=== PATIENT | female | born 1955 | race Caucasian/White ===

== ENCOUNTER 2025-08-02 10:46 | Emergency (ER) | payer OTHER, SELFPAY ==
[2025-08-02 10:54] VITALS: BP 126/97; PULSE 1; RESP 18; TEMP 36.8; O2SAT 99; BMI 21.9
--- NOTE | 2025-08-02 10:58 | DI.RAD.S_ITS ---
PROCEDURE: XR RIBS LT MIN 3V W CXR1V INDICATIONS: fall TECHNIQUE: 2 views of the ribs were acquired, along with a single view chest. COMPARISON: None. FINDINGS: Surgical changes and devices: Surgical clips are seen overlying the left chest wall. Bones and chest wall: No fractures or dislocations. No suspicious bony lesions. Overlying soft tissues appear unremarkable. Lungs and pleura: No pleural effusions or pneumothorax. Lungs appear clear. Mediastinum: Mediastinal contours appear normal. Heart size is normal. IMPRESSION: No displaced rib fracture or pneumothorax. Dictated by: Neeta Das M.D. on 08/02/2025 at 10:51 Approved by: Neeta Das M.D. on 08/02/2025 at 10:54
--- NOTE | 2025-08-02 12:06 | ED.FALL ---
HPI - Fall General Chief Complaint: Fall Stated Complaint: 2days:fell LT ribs on tub. Sore, wants to r/o fx. Time Seen by Provider: 08/02/25 12:05 Source: patient Mode of arrival: Family Vehicle History of Present Illness HPI Narrative: Patient is a 70-year-old female without any significant past medical history comes into the ED from home for evaluation of left-sided rib pain, states that she fell in the bathtub proximally 2 days ago, states that it is more painful when she takes a deep breath but is not pleuritic in nature denies any actual true chest pain. She denies any blood thinners denies any other injuries at this time Related Data Previous Rx's ?Medication ?Instructions ?Recorded lidocaine 4 % topical patch 1 patch topical DAILY PRN pain 1 08/02/25 week #6 ea methocarbamol 500 mg tablet 500 mg PO BEDTIME PRN pain 1 week 08/02/25 #7 tabs naproxen 500 mg tablet (Naprosyn) 500 mg PO BID PRN pain 1 week #14 08/02/25 tabs Allergies Allergy/AdvReac Type Severity Reaction Status Date / Time No Known Drug Allergies Allergy Verified 08/02/25 10:55 Review of Systems Review of Systems Narrative: General: Cooperative, well-developed, not in acute distress HEENT: Normocephalic, atraumatic, PERRLA, normal sclera, eyelids normal Neck: Active full range of motion, atraumatic Chest: Normal to inspection, negative crepitus, no overlying erythema ecchymosis Respiratory: Normal respiratory effort, not in acute respiratory distress, clear to auscultation bilaterally negative cough, wheeze, tachypnea, rhonchi, rales Cardiology: Regular rate rhythm negative gallop, murmur, rubs GI/: No tenderness to palpation, soft, non rigid, normal to inspection, exam deferred MSK: Positive left-sided rib pain Full active range of motion in all 4 extremities, no tenderness to palpation of any bony prominences Skin: No rashes or lesions noted Neuro: Alert awake oriented x3, moves all 4 extremities spontaneously, cranial nerves intact, able to answer all questions appropriately follows commands appropriately Psych: Cooperative, negative suicidal or homicidal ideations Patient History Smoking Status: Never smoker Exam Narrative Exam Narrative: General: Cooperative, well-developed, not in acute distress HEENT: Normocephalic, atraumatic, PERRLA, normal sclera, eyelids normal Neck: Active full range of motion, atraumatic Chest: Normal to inspection, negative crepitus, no overlying erythema ecchymosis Respiratory: Normal respiratory effort, not in acute respiratory distress, clear to auscultation bilaterally negative cough, wheeze, tachypnea, rhonchi, rales Cardiology: Regular rate rhythm negative gallop, murmur, rubs GI/: No tenderness to palpation, soft, non rigid, normal to inspection, exam deferred MSK: Full active range of motion in all 4 extremities, atraumatic, no tenderness to palpation of any bony prominences Skin: No rashes or lesions noted Neuro: Alert awake oriented x3, moves all 4 extremities spontaneously, cranial nerves intact, able to answer all questions appropriately follows commands appropriately Psych: Cooperative, negative suicidal or homicidal ideations Initial Vital Signs Initial Vital Signs: Vital Signs Temperature 98.2 F 08/02/25 10:54 Pulse Rate 1 L 08/02/25 10:54 Respiratory Rate 18 08/02/25 10:54 Blood Pressure 126/97 H 08/02/25 10:54 Pulse Oximetry 99 08/02/25 10:54 Oxygen Delivery Method Room Air 08/02/25 10:54 Course Orders Ordered: ED Orders 08/02/25 10:58 XR ribs LT min 3V w CXR1V Stat Vital Signs Vital signs: Vital Signs - 8 hr 08/02/25 10:54 Temperature 98.2 F Pulse Rate 1 L Respiratory Rate 18 Blood Pressure 126/97 H Pulse Oximetry 99 Oxygen Delivery Method Room Air MDM - Fall MDM Narrative Medical decision making narrative: Patient is a 70-year-old female without any significant past medical history comes into the ED from home for evaluation of left-sided rib pain, states that she fell in the tub and proximally 2 days ago, states that she has been having persistent pain therefore wanted to make sure there was no fracture. Patient had rib x-ray performed here that did not show any acute traumatic injury, no pneumothorax no pneumonia. Patient does have some tenderness to palpation of the left anterior ribs but no palpable step-offs no ecchymosis, patient will be treated for rib contusion instructed to follow up with the primary care in outpatient setting she verbalized understanding of this and agrees to being discharged home with outpatient follow up Discharge Plan Departure Patient Disposition: Home Clinical Impression: Contusion of rib Instructions: DI for Rib Contusion Activity Restrictions/Additional Instructions: Please follow up with the primary care doctor as needed Please read the discharge instructions sheet carefully and bring all papers to all doctor follow-up visits, as it may contain information that your doctor may want to see. Disease processes change and evolve, if your symptoms worsen or if you develop any new symptoms that are concerning to you please return for evaluation. Your evaluation today does not show any evidence of any life-threatening/serious illnesses requiring admission to the hospital or surgery. Please follow-up with your doctor for re-evaluation in approximately 1 day. Seek immediate medical attention for any worrisome symptoms. *If you do not have a primary care provider please contact the [facility] Resource line at [phone]. They will ask some questions about your medical history and help get you set up with a doctor in the community. Prescriptions: New lidocaine 4 % adhesive patch,medicated 1 patch topical DAILY PRN (Reason: pain) 7 Days Qty: 6 0RF Rx Instructions: may leave on for up to 12 hrs methocarbamol 500 mg tablet 500 mg PO BEDTIME PRN (Reason: pain) 7 Days Qty: 7 0RF naproxen [Naprosyn] 500 mg tablet 500 mg PO BID PRN (Reason: pain) 7 Days Qty: 14 0RF Stand Alone Forms: Patient Portal/API
[2025-08-02] MEDS: NAPROXEN 250 MG TABLET 500 MG PO (12:24)
[2025-08-02] MEDS: LIDOCAINE 5% PATCH 1 EACH TOP (12:25)
[2025-08-02 12:34] VITALS: BP 132/70; PULSE 78; RESP 14; O2SAT 99
== END 2025-08-02 12:36 | disposition home or self-care (01) ==
PROVIDERS: Emergency Provider Student in an Organized Health Care Education/Training Program
DX: S20.212A Contusion of left front wall of thorax, initial encounter (principal); W18.2XXA Fall in (into) shower or empty bathtub, initial encounter
CPT/HCPCS: 71101; 99283